=== PATIENT | female | born 1995 | race Caucasian/White ===

== ENCOUNTER 2018-05-26 09:00 | Outpatient (CLI) | END 2018-05-26 09:01 | disposition home or self-care (01) | LOC: LAB 09:00 | PROVIDERS: ATTEND Family Medicine | DX: R53.83 Other fatigue (principal); L65.9 Nonscarring hair loss, unspecified | CPT/HCPCS: 36415; 80053; 82306; 83036; 83525; 84439; 84443; 85025 ==